=== PATIENT | male | born 1940 | race Caucasian/White ===

== ENCOUNTER 2017-01-07 07:43 | Inpatient (IN) | payer MEDICARE ==
--- NOTE | 2016-12-31 11:26 | HP ---
AMENDED REPORT NOW INCLUDES COSIGNER DESIGNATION - ESIGNED BEFORE ADJUSTMENT HISTORY AND PHYSICAL: DATE OF SURGERY: 01/07/17. DATE OF OFFICE VISIT: 12/28/16. SURGEON: Cristal Rios MD * (DICTATED BY LUIGI STRAUSS) PROCEDURE: Right total knee arthroplasty. CHIEF COMPLAINT: Right knee pain. HISTORY OF PRESENT ILLNESS: Mr. Castorena is a 76-year-old gentleman with complaints of right knee pain secondary to osteoarthritis. He has failed conservative management and has elected to proceed with a right total knee arthroplasty. PAST MEDICAL HISTORY: Hypertension, GERD, sleep apnea. PAST SURGICAL HISTORY: Prostate surgery, unknown tonsillectomy. CURRENT MEDICATIONS: 1. Famotidine 20 mg daily. 2. Triamterene/hydrochlorothiazide 37.5/25 mg daily. 3. Amlodipine 2.5 mg daily. ALLERGIES: None. FAMILY HISTORY: Breast cancer. SOCIAL HISTORY: A 76-year-old gentleman who lives with his spouse. Does not smoke or use drugs. He uses occasional alcohol. REVIEW OF SYSTEMS: A complete 14-point review of systems was reviewed with the patient, is positive for GERD and shortness of breath with overexertion. He denies history of DVT, PE or anesthesia problems. PHYSICAL EXAMINATION GENERAL: He is a well developed, well nourished, in no acute distress. VITAL SIGNS: He stands 6 feet tall, he is 240 pounds, blood pressure is 143/79 , heart rate 69. HEENT: Normocephalic, atraumatic. NECK: Supple. No palpable lymph nodes. PULMONARY: Lungs are clear to auscultation bilaterally. CARDIO: Regular rate and rhythm. ABDOMEN: Soft, nontender, and nondistended. MUSCULOSKELETAL: Right lower extremity, the skin is intact. There are no open wound or abrasions. There is a moderate effusion and tenderness over the mediolateral joint line, 15 to 125 degrees flexion with patellofemoral crepitus. 2+ dorsalis pedis pulses. Intact sensation in his lower extremity. Muscle group strengths are intact at 5/5. NEUROLOGIC: Alert and oriented x3. Cranial nerves II through XII are intact. ASSESSMENT AND PLAN: Mr. Castorena is a 76-year-old gentleman with complaints of right knee pain secondary to end-stage osteoarthritis. He has failed conservative management and has elected to proceed with a right total knee arthroplasty, which is scheduled for 01/07/[address] Rios discussed the risks and benefits of the surgery at today's visit and all of his questions were answered. Percocet, Colace, and Coumadin were sent to his pharmacy for postoperative pain control and DVT prophylaxis. He will see Dr. Rios back in 2 weeks after the surgery. LUIGI STRAUSS [id number]/[facility] #: [id number] MTDD
[~2017-01-07 07:43] MED LIST: Buffered Lidocaine 0.9% SYRIN* 5 ML/SYR SYRINGE INTRADERM ONE; Dexamethasone IV* 4 MG/ML 1 ML (4 MG) IV SLOW PU ONE; Famotidine IV* 10 MG/ML 2 ML (20 mg) IV ONE
[2017-01-07] MEDS ORDERED: Clindamycin 900 MG IVPREMIX(* 900 MG/50 ML SDV IV ONE (08:01)
[2017-01-07] MEDS ORDERED: Dexamethasone IV* 4 MG/ML 1 ML (4 MG) ONE (08:01)
[2017-01-07] MEDS ORDERED: Famotidine IV* 10 MG/ML 2 ML (20 mg) ONE (08:01)
[2017-01-07] MEDS ORDERED: Buffered Lidocaine 0.9% SYRIN* 5 ML/SYR SYRINGE ONE (08:02)
[2017-01-07] MEDS ORDERED: Scopolamine 1.5 mg* PATCH ONE (09:23)
[2017-01-07] MEDS ORDERED: Ketorolac INJ* 30 MG/ML 1 ML VIAL IV PRN (09:34)
[2017-01-07] MEDS ORDERED: DiMENhydriNATE IV* 50 MG/ML VIAL IV PUSH PRN ×2 (09:34→09:35)
[2017-01-07] MEDS ORDERED: Naloxone* 2 MG in NS 0.9% 250 ML* 250 ML IV PRN (09:35)
[2017-01-07] MEDS ORDERED: diPHENhydraMINE IV* 50 MG/ML 1 ml VIAL (BENADRYL) IV PRN (09:35)
[2017-01-07] MEDS ORDERED: Ketorolac INJ* 15 MG/ML 1 ML VIAL IV PRN (09:35)
[2017-01-07] MEDS ORDERED: EPHEDrine (Pressors)* 50 MG/ML VIAL IV PUSH PRN (09:35)
[2017-01-07] MEDS ORDERED: Ondansetron INJ* 2 MG/ML VIAL IV PRN (09:35)
[2017-01-07] MEDS ORDERED: Midazolam* 1 MG/ML 2 ML VIAL (2 MG) ONE (09:52)
[2017-01-07] MEDS ORDERED: Scopolamine 1.5 mg* PATCH TRANSDERM SCH (10:00)
[2017-01-07] MEDS ORDERED: Ropivacaine* 300 MG in NS 0.9% 250 ML* 240 ML EPIDURAL SCH (10:00)
[2017-01-07] MEDS ORDERED: Morphine PF AMP (0.5MG/ML)* 5 MG/10 ML AMP ONE (10:04)
[2017-01-07] MEDS ORDERED: Ondansetron INJ* 2 MG/ML VIAL ONE (10:31)
[2017-01-07] MEDS ORDERED: Propofol* 10 MG/ML 20 ML BTL IV PUSH ONE (10:31)
[2017-01-07] MEDS ORDERED: Naloxone* 0.4 MG/ML 1 ML VIAL IV PRN (11:04)
[2017-01-07] MEDS ORDERED: Magnesium Hydroxide LIQ* 30 ML UDC PO PRN (11:32)
[2017-01-07] MEDS ORDERED: Bisacodyl SUPP* 10 MG SUPP PR PRN (11:32)
[2017-01-07] MEDS ORDERED: Acetaminophen TAB* 325 MG PO PRN (11:32)
[2017-01-07] MEDS ORDERED: Polyethylene Glycol 3350* 17 GM PACKET PO PRN (11:32)
--- NOTE | 2017-01-07 13:45 | RAD ---
HISTORY: Status post right knee arthroplasty COMPARISONS: August 21, 2016 VIEWS: 2, Frontal and lateral views of the right knee FINDINGS: BONE DENSITY: Normal. BONES: The patient is status post right knee arthroplasty. There is no hardware failure or osteolysis. JOINTS: The patient is status post right knee arthroplasty ALIGNMENT: There is no dislocation. SOFT TISSUES: There is postsurgical change to the soft tissue OTHER FINDINGS: None. IMPRESSION: STATUS POST RIGHT KNEE ARTHROPLASTY
[2017-01-07] MEDS ORDERED: Warfarin TAB(*) 6 MG PO ONE (17:00)
[2017-01-07] MEDS: Clindamycin 600 MG IVPREMIX(* 600 MG/50 ML SDV IV SCH (20:35)
[2017-01-07] MEDS: Docusate CAP* 100 MG PO SCH (20:36)
[2017-01-07] MEDS ORDERED: Triamterene/HCTZ 37.5-25 MG* CAP PO SCH (21:00)
--- NOTE | 2017-01-07 21:21 | CONS ---
CC: Dr. Best; Dr. Rios * CONSULTATION REPORT: DATE OF CONSULT: 01/07/17 PRIMARY CARE PROVIDER: Dr. Best. REQUESTING PHYSICIAN IN CONSULT: Dr. Rios. REASON FOR MEDICAL CONSULTATION: Evaluation and medical management of comorbid medical conditions. HISTORY OF PRESENT ILLNESS: I refer you to Dr. Rios's H and P for further details. In short, Mr. Castorena is a 76-year-old male patient. He carries a history of hypertension, ALEXIA, GERD, hyperlipidemia, BPH, and arthritis who for some time has been dealing with right knee pain. He failed conservative management and ultimately was evaluated by Dr. Rios. It was felt that he would benefit from elective total knee, which he underwent today. Because of his complexity medically, we were asked to evaluate in consult. He was evaluated in the PACU. At this point, he states he denies having any chest pain. Denies having any shortness of breath. He denies having any abdominal pain. He states he does not feel lightheaded or dizzy. He states he has no sensation in his lower extremities, although he did receive spinal anesthetic. He states he is feeling well. He states his pain is well controlled. PAST MEDICAL HISTORY: 1. Hypertension. 2. GERD. 3. ALEXIA. 4. Hyperlipidemia. 5. BPH. 6. Arthritis. PAST SURGICAL HISTORY: 1. He has had a TURP. 2. Tonsillectomy. 3. Now, he has had right total knee replacement done today. MEDICATIONS: Home medications according to his preop list: 1. Tylenol 650 mg p.o. every 6 hours as needed. 2. Dyazide half a capsule p.o. at bedtime. 3. Metamucil p.o. daily. 4. Pepcid 20 mg daily. 5. Norvasc 2.5 mg p.o. daily. ALLERGIES TO MEDICATIONS: Include PENICILLIN. FAMILY HISTORY: Mother had a history of breast cancer with metastatic disease. Father had a history of pancreatitis. SOCIAL HISTORY: He does not smoke, does not drink. Surrogate decision maker is his . REVIEW OF SYSTEMS: There is no documented fever. Denied having any significant weight change. No double vision. No ear discharge. There is no rhinorrhea. No sore throat. No thyroid enlargement. Denies having any chest pain. There is no orthopnea. No nocturnal dyspnea. No chest pain. No nausea. No vomiting. No dysuria. No frequency. No seizure. No loss of consciousness. No pruritus. No skin ulcerations. Review of 14 systems was completed; all others negative. PHYSICAL EXAMINATION: Vital Signs: Blood pressure 137/79, his last blood pressure down here is 114/70 with a pulse of 64, respirations 16, O2 sat 96%, temperature 97.3. General: At this time, Mr. Castorena is a 76-year-old male patient. He appears to be well nourished, well developed. He is sitting in the PACU bed. He does not appear to be in any acute distress. HEENT: Head: Atraumatic, normocephalic. Eyes: EOMs intact. Sclerae anicteric, not pale. Pupils reactive to light. Neck: Supple. Throat: Oral mucosa appears to be moist. No oropharyngeal erythema. Heart: Sounds S1, S2. Regular rate and rhythm. No murmurs, rubs, or gallops were appreciated. Lungs were clear to auscultation bilaterally. No wheezes, rales, or rhonchi. Abdomen: Soft, flat , nontender. Bowel sounds are hypoactive. Extremities: Distal CSM checks are intact bilaterally. He has no sensation yet and no movement just yet due to the spinal anesthetic, but again pulses and cap refills were excellent. He is moving his upper extremities with 5/5 strength. Neurologically, he is awake, alert, oriented x3. Centrifuge Separator Tender were equal. Tongue midline. No gross focal deficits. Speech is clear. Skin: Intact with the exception he has an incision to the right knee, which is covered with an Nazario dressing, clean, dry, and intact. Hemovac was intact. LABORATORY DATA/DIAGNOSTIC STUDIES: His labs preoperatively, WBC 5.6, RBC of 5.25, hemoglobin 16.4, hematocrit of 48, platelet count 198,000. His INR was 1.07. Urine preop was negative. He did have a EKG preop, which shows a normal sinus rhythm at rate of 70, no ST elevations or T wave inversions. He had a preop chest x-ray as well, which revealed no active cardiopulmonary disease. There was a preop basic metabolic panel with glucose 121, BUN 24, creatinine 1.1. Sodium 139, potassium 3.7, chloride 105, bicarb 28, calcium 9.8. Old medical records were reviewed. ASSESSMENT AND PLAN: Mr. Castorena is a 76-year-old male patient coming in to the orthopedic services today for elective total knee replacement. We were asked to evaluate in consult for medical management. Recommendations at this point are: 1. Status post right total knee. I will defer further management of this to Dr. Rios and her team. 2. Hypertension. I am going to hold his medications at this point as he does have an epidural in place. We will restart this when the epidural is removed and follow closely. 3. Obstructive sleep apnea. We will put him on continuous pulse oximetry for 24 hours given the spinal anesthetic, to watch him closely and we will continue with CPAP. 4. Hyperlipidemia. Continue with lifestyle management. 5. Benign prostatic hypertrophy. Follow with his primary. Not an active issue currently. 6. Gastroesophageal reflux disease. Continue his famotidine. 7. Osteoarthritis. Pain meds are made available and follow with his primary. 8. DVT prophylaxis. I will defer the management to the primary team. 9. Fluids, electrolytes, and nutrition. I would recommend a regular diet. 10. Code status. Full code. TIME SPENT: On the consult was 60 minutes, greater than half the time was spent [id number] with the patient obtaining my history and physical, other half of the time was spent going over the plan of care with the patient and implementing plan of care. I did discuss the plan of care with my attending, Dr. Marley; she is in agreement. LORI DICKENS NP [id number]/[facility] #: [id number] GEMMA
[2017-01-08] MEDS: Clindamycin 600 MG IVPREMIX(* 600 MG/50 ML SDV IV SCH ×2 (05:00→13:15)
[2017-01-08] MEDS: oxyCODONE/Acetamin 5/325 MG* TAB PO PRN ×3 (05:11→17:13)
[2017-01-08 05:39] LABS: Hematocrit 38 % (42-52)
[2017-01-08 05:51] LABS: BUN/Creatinine Ratio 26.3 (8-20); EGFR African American 98.9 (>60); EGFR Non-African American 76.9 (>60); Potassium 3.8 mmol/L (3.5-5.0)
[2017-01-08] MEDS ORDERED: Ondansetron INJ* 2 MG/ML VIAL IV PRN (06:00)
[2017-01-08] MEDS ORDERED: diPHENhydraMINE IV* 50 MG/ML 1 ml VIAL (BENADRYL) IV PRN (06:00)
[2017-01-08] MEDS ORDERED: oxyCODONE/Acetamin 5/325 MG* TAB PO PRN (06:00)
[2017-01-08] MEDS ORDERED: Ondansetron TAB* 4 MG PO PRN (06:00)
[2017-01-08] MEDS ORDERED: Morphine INJ* 2 MG/ML 1 ML SYRINGE (TWO MG - NEW SYRINGE VERSION) IV PRN (06:00)
[2017-01-08] MEDS: oxyCODONE TAB* 5 MG TAB PO PRN ×2 (08:30→19:53)
[2017-01-08] MEDS: Docusate CAP* 100 MG PO SCH ×2 (08:30→19:54)
[2017-01-08] MEDS: Famotidine TAB* 20 MG PO SCH (08:30)
[2017-01-08] MEDS ORDERED: NON FORMULARY MED* (Amlodipine Besylate [Norvasc 2.5 Mg Tab] 2.5 MG) PO SCH (09:00)
--- NOTE | 2017-01-08 09:54 | PN ---
Subjective Date of Service: 01/08/17 Interval History: Patient seen this morning. Reports some soreness in the R knee, just got pain medication. Still having numbness in the RLE, epidural catheter removed this morning. Denies any chest pain or SOB. López removed, no UOP yet, no BM yet. Family History: Unchanged from Admission Social History: Unchanged from Admission Past Medical History: Unchanged from Admission Objective Active Medications: Acetaminophen (Tylenol Tab*) 650 mg PO Q4H PRN Bisacodyl (Dulcolax Supp*) 10 mg [place] DAILY PRN Diphenhydramine HCl (Benadryl Iv*) 12.5 mg IV Q6H PRN Docusate Sodium (Colace Cap*) 100 mg PO BID JORGE Enoxaparin Sodium (Lovenox(*)) 30 mg SUBCUT Q24H JORGE Famotidine (Pepcid Tab*) 20 mg PO DAILY JORGE Ropivacaine 300 mg/ Sodium (Chloride) 300 mls @ 0 mls/hr EPIDURAL Q24H JORGE; Per Protocol Clindamycin HCl/Dextrose (Cleocin 600 Mg Ivpremix(*) Sdv) 600 mg in 50 mls @ 100 mls/hr IV Q8H JORGE Lactated Ringer's (Lactated Ringers 1000 Ml Bag*) 1,000 mls @ 100 mls/hr IV PER RATE JORGE Lactulose (Lactulose*) 30 ml PO Q6H PRN Magnesium Hydroxide (Milk Of Magnesia Liq*) 30 ml PO Q6H PRN Morphine Sulfate (Morphine Inj (Syringe)*) 2 mg IV Q2H PRN Ondansetron HCl (Zofran Inj*) 4 mg IV Q6H PRN Ondansetron HCl (Zofran Tab*) 4 mg PO Q6H PRN Oxycodone HCl (Roxycodone Tab*) 10 mg PO Q4H PRN Oxycodone/Acetaminophen (Percocet 5/325 Tab*) 1 tab PO Q4H PRN Oxycodone/Acetaminophen (Percocet 5/325 Tab*) 2 tab PO Q4H PRN Pharmacy Profile Note (Coumadin Daily Reminder*) [address] [facility] Pharmacy Profile Note (Scopolamine Patch Remove*) 1 note PATCH OFF Q72H JORGE Polyethylene Glycol/Electrolytes (Miralax*) 17 gm PO DAILY PRN Scopolamine (Transderm-Scop 1.5 Mg Patch*) 1 patch TRANSDERM Q72H JORGE Vital Signs 01/07/17 01/07/17 01/07/17 12:50 12:55 13:00 Temperature 96.4 F Pulse Rate 64 64 66 Respiratory 16 16 16 Rate Blood Pressure 122/72 114/73 117/69 (mmHg) O2 Sat by Pulse 98 98 99 Oximetry 01/07/17 01/07/17 01/07/17 14:45 15:00 15:13 Temperature Pulse Rate 60 62 61 Respiratory 16 14 16 Rate Blood Pressure 103/65 105/68 105/68 (mmHg) O2 Sat by Pulse 95 95 94 Oximetry 01/08/17 01/08/17 01/08/17 05:11 05:59 07:37 Temperature 98.1 F Pulse Rate 54 Respiratory 16 16 17 Rate Blood Pressure 103/57 (mmHg) O2 Sat by Pulse 93 Oximetry Oxygen Devices in Use Now: None Appearance: Elderly, M, laying in chair in NAD Eyes: No Scleral Icterus Ears/Nose/Mouth/Throat: Mucous Membranes Moist Neck: NL Appearance and Movements; NL JVP Respiratory: Symmetrical Chest Expansion and Respiratory Effort, Clear to Auscultation Cardiovascular: NL Sounds; No Murmurs; No JVD, RRR Abdominal: NL Sounds; No Tenderness; No Distention Lymphatic: No Cervical Adenopathy Extremities: No Edema, - - JARED wrap in place over R knee, R cryounit in place Neurological: - - Reports diminished sensation in RLE Result Diagrams: 01/08/17 04:58 01/08/17 04:57 Assess/Plan/Problems-Billing Assessment: R TKA in a 76 yo M with hx of HTN, diet-controlled HLD, BPH, ALEXIA, GERD - Patient Problems (1) Status post total right knee replacement Current Visit: Yes Comment: Management as per Ortho. Continue to have RLE numbness, apparently had prolonged PACU course as it took a long time for him to recover sensory/motor function from epidural. Epidural cath removed this AM, anesthesia continues to follow, will continue to monitor. On Coumadin/Lovenox (2) HTN (hypertension) Current Visit: Yes Comment: BPs remain soft. Continue to hold home Amlodipine and Dyazide. (3) ALEXIA (obstructive sleep apnea) Current Visit: Yes Comment: CPAP qhs (4) GERD (gastroesophageal reflux disease) Current Visit: Yes Comment: Continue H2 ronnell (5) DVT prophylaxis Current Visit: Yes Comment: Lovenox/Coumadin
--- NOTE | 2017-01-08 11:35 | PN ---
Progress Note - Progress Note Date of Service: 01/08/17 SOAP: Subjective: Pt. reports pain is controlled. He has some numbness on dorsal toes and weakness with DF but feels this is improving. Objective: RLE - dresssing changed, drain removed with tip intact. Inc c/d/i with min effusion at knee. distally calf is soft. Sens to LT but diminished compared to opposite side in region of superficial peroneal nerve dorsal foot. He does clearly demonstrate active EHL and DF against gravity, but this is weak compared to opposite side 4+/5. 2+ dp pulse. Vital Signs: Temp Pulse Resp BP Pulse Ox 98.1 F 54 16 103/57 93 01/08/17 07:37 01/08/17 07:37 01/08/17 10:45 01/08/17 07:37 01/08/17 07:48 Laboratory Results - last 24 hr 01/08/17 01/08/17 01/08/17 04:57 04:57 04:58 Hgb 13.0 L Hct 38 L INR (Anticoag Therapy) 1.16 H Sodium 136 Potassium 3.8 Chloride 101 Carbon Dioxide 28 Anion Gap 7 BUN 25 H Creatinine 0.95 Est GFR ( Amer) 98.9 Est GFR (Non-Af Amer) 76.9 BUN/Creatinine Ratio 26.3 H Glucose 185 H Calcium 9.0 Assessment: 76 yo M pod 1 s/p RTKA Plan: wbat rle continue to bend knee, new loose dressing placed. He will focus on DF and EHL exercises. Anticipate full recovery PT/OT 8 mg coumadin tonight plan d/c to home possible 01/09
--- NOTE | 2017-01-08 11:37 | PN ---
Progress Note - Progress Note Date of Service: 01/08/17 SOAP: Subjective: 76 y/o male s/p R TKA on 01/[address] Rios. Patient pain controlled with PO pain meds, c/o numbness of great, 2nd toes with decreased movement of RIght foot , mild improvement over this AM. VSS afebrile overnight, mild hypotension. Objective: General- Well appearing, NAD AO, sitting comfortably in chair MSK- Dressing intact, no drainage noted, - homans b/l, Right great toe, 2nd toes with no sensation to light touch or pain stimuli, decreased ROM with extension, able to flex without difficulty A&P, light touch sensation begins to decrease at medial ankle and worsens to toes, full sensation in 3-5th toes with full ROM, full PF of r ankle, decreased DF with 1/5 strength. knee extension 3/5 strength in compared to L, flex 5/5 = b/l. Vital Signs Temp 98.1 F 01/08/17 07:37 Pulse 54 01/08/17 07:37 Resp 16 01/08/17 10:45 BP 103/57 01/08/17 07:37 Pulse Ox 93 01/08/17 07:48 Intake & Output 01/07/17 01/08/17 01/08/17 18:59 06:59 18:59 Intake Total 1750 1610 320 Output Total 1100 750 Balance 650 860 320 Weight 108.409 kg Intake: IV Fluids 1250 890 CLINDAMYCIN 900MG 50 LR 1200 890 IVPB 50 ABX - CLINDAMYCIN 50 Oral 500 670 320 Output: López 950 750 Estimated Blood Loss 150 Other: # Bowel Movements 0 Assessment: Stable 76 y/o male s/p R TKA on 01/[address] Rios. Plan: - Mild hypotension, continue to monitor, being followed by hospitalists - LE numbness/ weakness- Dr Rios made aware, will continue to monitor throughout the AM for improvement - DVT prophylaxis- continue lovenox, INR 1.16, 8mg coumadin tonight. - Continue PT - COntinue current pain management Active Medications Generic Name Dose Route Start Last Admin Trade Name Freq PRN Reason Stop Dose Admin Acetaminophen 650 mg 01/07/17 11:32 Tylenol Tab* PO Q4H PRN PAIN OR TEMPERATURE Bisacodyl 10 mg 01/07/17 11:32 Dulcolax Supp* [place] DAILY PRN constipation Diphenhydramine HCl 12.5 mg 01/08/17 06:00 Benadryl Iv* IV Q6H PRN PRURITIS Docusate Sodium 100 mg 01/07/17 21:00 01/08/17 08:30 Colace Cap* PO 100 mg BID JORGE Administration Enoxaparin Sodium 30 mg 01/08/17 12:00 Lovenox(*) SUBCUT Q24H JORGE Famotidine 20 mg 01/08/17 09:00 01/08/17 08:30 Pepcid Tab* PO 20 mg DAILY JORGE Administration Clindamycin HCl/Dextrose 600 mg in 50 mls @ 100 mls/hr 01/07/17 21:00 05:00 Cleocin 600 Mg Ivpremix(*) Sdv IV 01/08/17 13:29 100 mls/hr Q8H JORGE Administration Lactated Ringer's 1,000 mls @ 100 mls/hr 01/07/17 12:00 01/08/17 05:41 Lactated Ringers 1000 Ml Bag* IV 100 mls/hr PER RATE JORGE Administration Lactulose 30 ml 01/07/17 11:32 Lactulose* PO Q6H PRN constipation Magnesium Hydroxide 30 ml 01/07/17 11:32 Milk Of Magnesia Liq* PO Q6H PRN constipation Morphine Sulfate 2 mg 01/08/17 06:00 Morphine Inj (Syringe)* IV Q2H PRN PAIN Ondansetron HCl 4 mg 01/08/17 06:00 Zofran Inj* IV Q6H PRN nausea Ondansetron HCl 4 mg 01/08/17 06:00 Zofran Tab* PO Q6H PRN NAUSEA Oxycodone HCl 10 mg 01/08/17 06:00 01/08/17 08:30 Roxycodone Tab* PO 10 mg Q4H PRN Administration SEVERE PAIN Oxycodone/Acetaminophen 1 tab 01/08/17 06:00 Percocet 5/325 Tab* PO Q4H PRN PAIN Oxycodone/Acetaminophen 2 tab 01/08/17 05:00 01/08/17 05:11 Percocet 5/325 Tab* PO 2 tab Q4H PRN Administration PAIN Pharmacy Profile Note 1 note 01/08/17 17:00 Coumadin Daily Reminder* FOLLOW UP [facility] Pharmacy Profile Note 1 note 01/10/17 09:00 Scopolamine Patch Remove* PATCH OFF Q72H [facility] Polyethylene Glycol/Electrolytes 17 gm 01/07/17 11:32 Miralax* PO DAILY PRN Constipation Scopolamine 1 patch 01/07/17 10:00 01/07/17 09:24 Transderm-Scop 1.5 Mg Patch* TRANSDERM 1 patch Q72H [facility] Administration Warfarin Sodium 8 mg 01/08/17 17:00 Coumadin Tab(*) PO 01/08/17 17:01 ONCE@1700 ONE Protocol
[2017-01-08] MEDS: Enoxaparin(*) 30 MG/0.3 ML SYR SUBCUT SCH (13:18)
--- NOTE | 2017-01-08 14:14 | OP ---
OPERATIVE REPORT: DATE OF OPERATION: 01/07/17. DATE OF : 38. SURGEON: Cristal Rios MD. PIPELINE OPERATOR: LUIGI De Leon. Matt Roman did help throughout the procedure with preparation of the leg, wound retraction, manip ulation of the knee and wound closure. ANESTHESIOLOGIST: Dr. Collazo. ANESTHESIA: Spinal. PRE-OP DIAGNOSIS: Severe endstage degenerative osteoarthritis of the right knee joint. POST-OP DIAGNOSIS: Severe endstage degenerative osteoarthritis of the right knee joint. OPERATIVE PROCEDURE: Right total knee arthroplasty. TOURNIQUET TIME: 48 minutes. COMPLICATIONS: None. ESTIMATED BLOOD LOSS: 300 mL. SPECIMENS: Bone and cartilage from the right knee joint sent to Pathology. HARDWARE USED: This is a cemented [employer] total knee hardware. For the cement, 2 packages of Simplex bone cement. For the femur a size 7 right posterior stabilized femoral component. For th e tibia, a size 6 right tibial baseplate. For the insert, a 9-mm posterior stabilized articular inse rt, size 5/6. For the patella, size 35 mm 3-peg all poly patella. BRIEF HISTORY/INDICATIONS: Mr. Castorena is a 76-year-old gentleman with years of increasingly severe lef t knee pain. He failed conservative treatment with antiinflammatories, pain medications, physical th erapy, intraarticular injection, and ambulatory assistive devices. His radiographs showed bone-on-angelica ne arthritis. Due to continued pain and decreased quality of life, he elected to proceed with right k nee arthroplasty. Informed consent was obtained from the patient. He understood the risk of the pro cedure included, but were not limited to bleeding, infection, damage to nearby structures, continued pain, need for further surgery, intraoperative fracture, nerve palsy, hardware failure or loosening, knee stiffness, loss of motion, stroke, heart attack, blood clot, and . He wished to proceed. INTRAOPERATIVE FINDINGS: Intraoperatively, the patient was noted to have severe arthritis with compl ete loss of cartilage in the medial and patellofemoral compartments. There was significant osteophyt e formation. DESCRIPTION OF PROCEDURE: Mr. Castorena was identified in the preanesthesia unit. His right lower extrem ity was marked as the correct operative site. Informed consent was signed and placed in the chart. The patient was taken to the operating room and placed under spinal anesthesia. A López catheter was placed. A tourniquet was placed on the right thigh. The right lower extremity was prepped and drap ed in the usual sterile fashion. Preop time-out was made to correctly identify the patient side and site. Appropriate perioperative antibiotics were given within 1 hour of incision. Tourniquet was inflated until the tourniquet time for this procedure was 48 minutes. A 14-cm midline incision was made with a 10 blade, carried down to the extensor mechanism. A new 10-blade was used to make a standard medial parapatellar arthrotomy. The patella was subluxed laterally. Electrocaute ry was used to subperiosteally elevate soft tissue off the superomedial tibia to the mid sagittal maragret ne. The knee was flexed up. The anterior horn of the lateral meniscus and the ACL were sharply rele ased. A drill was used to enter the distal femur. Intramedullary distal femoral cutting guide was pi nned on the distal femur. Then, 9 mm of distal femoral bone was carefully removed. Next, the school resource officer al rotation guide was pinned on the distal femur and the distal femur was sized to a size 7. Size 7 m ulti-cutting jig was then pinned on the distal femur. Oscillating saw was used to make the appropria te 4 chamfer cuts. The PCL was completely released. The tibia was subluxed anteriorly. Extramedullary tibial cutting gu taras was pinned on the proximal tibia. Oscillating saw was used to make the proximal tibial cut perpe ndicular to the mechanical axis of the tibia. The bone was carefully removed. The knee was brought out into full extension. Spacer block had a good fit. Medial and lateral ligamentous balancing was satisfactory. Flexion and extension gap balancing was satisfactory. The knee was flexed up. Lamina advertising internship was placed both medially and laterally. Any remaining meniscus was carefully removed using electrocautery. Posterior osteophytes were removed with a curved osteotome. A size 7 right femoral trial was impacted on to the distal femur. This had excellent fit. The box for the posterior stabi lized implant was prepared using a reamer and box-cut osteotome. A size 6 tibial tray trial was placed with a 9 mm insert trial. The knee was taken through range of motion and noted to have full extension to 130 degrees of flexion with satisfactory patellofemoral tr acking. The patella was everted. Then, 9-mm of patellar bone and cartilage were carefully removed u sing the oscillating saw. The patella was sized to a size 35. The 3 peg holes were drilled through the size 35 guide. A trial 35 patella was placed and the knee was taken through range of motion. Pa tellofemoral tracking was satisfactory. All trials were carefully removed. The tibia was subluxed anteriorly. It was noted that there was a cyst along the posterior media tibia and any cystic material was carefully removed. These were less than 1 cm in diameter; therefore, it was decided that cement will be used to fill these. Proximal t ibia was sized to a size 6. Proximal tibia was prepared using a size 6 keel punch. All bony cut surfaces were copiously irri gated with sterile saline and dried. The final implants were cemented into place starting with the t ibia, followed by the femur, and lastly the patella. A 9-mm insert trial was placed while the knee w as brought into full extension. The tourniquet was turned down at 48 minutes. The knee was copiousl y irrigated with sterile saline. Electrocautery was used to obtain meticulous hemostasis. Once the cement had fully cured, the insert trial was removed. Any excess cement was carefully removed from a round the capsule and hardware. Final insert chosen was a 9 mm posterior stabilized articular insert size 5/6. This was locked into position on the tibial tray without difficulty. Stability of the in sert was checked and rechecked and noted to be stable. Final range of motion with full extension, to 130 degrees of flexion. The knee was copiously irrigated with sterile saline. The extensor mechanism was closed over a mediu m Hemovac drain using interrupted #1 Vicryls. The rest of the incision was closed in a layered fashi on using 0 and 2-0 Vicryls. Skin was closed using running 3-0 nylon suture. Sterile Xeroform, 4x4s, and Webril were used to cover the incision. Nazario wrap and cold pack were placed over this. The patie nt's anesthesia was reversed without difficulty. He was taken to the PACU in stable condition. Inte nded weightbearing will be weightbearing as tolerated. Intended DVT prophylaxis will be Coumadin with a Lovenox bridge. [id number]/[facility] #: [id number]
[2017-01-08] MEDS ORDERED: Warfarin TAB(*) 4 MG PO ONE (17:00)
[2017-01-08] MEDS ORDERED: Tamsulosin CAP* 0.4 MG PO SCH (21:00)
[2017-01-09] MEDS: oxyCODONE TAB* 5 MG TAB PO PRN (04:38)
[2017-01-09 05:31] LABS: Hematocrit 34 % (42-52); Hemoglobin 11.6 g/dl (14.0-18.0)
[2017-01-09] MEDS: oxyCODONE/Acetamin 5/325 MG* TAB PO PRN ×2 (08:04→11:53)
[2017-01-09] MEDS: Docusate CAP* 100 MG PO SCH (08:04)
[2017-01-09] MEDS: Famotidine TAB* 20 MG PO SCH (08:04)
[2017-01-09] MEDS ORDERED: Tamsulosin CAP* 0.4 MG PO SCH (09:00)
--- NOTE | 2017-01-09 09:27 | PN ---
Progress Note - Progress Note Date of Service: 01/09/17 SOAP: Subjective: Pt. is alert, reports pain is increased today. RLE foot numbness improved today. Objective: RLE - dressing changed, inc c/d/i. distally +df/ehl 4/5. sens lt intact dorsal foot, decr compared to L foot. 2+ dp pulse. Vital Signs: Temp Pulse Resp BP Pulse Ox 98.6 F 67 18 108/41 92 01/09/17 07:24 01/09/17 07:24 01/09/17 08:04 01/09/17 07:24 01/09/17 07:24 Laboratory Results - last 24 hr 01/09/17 01/09/17 05:09 05:09 Hgb 11.6 L Hct 34 L INR (Anticoag Therapy) 1.20 H Assessment: 76 yo M pod 2 s/p RTKA Plan: pt/ot wbat rle lovenox dose today 8 mg coumadin 01/09 and 01/10 d/c to home today with snf.
[2017-01-09 11:45] VITALS: BP 114/55
[2017-01-09] MEDS: Enoxaparin(*) 30 MG/0.3 ML SYR SUBCUT SCH (11:55)
[2017-01-09] MEDS ORDERED: Warfarin TAB(*) 4 MG PO ONE (17:00)
[2017-01-10] MEDS ORDERED: Scopolamine PATCH Remove* 1 NOTE MISC PATCH OFF SCH (09:00)
--- NOTE | 2017-01-10 10:15 | DS ---
AMENDED REPORT NOW INCLUDES COSIGNER DESIGNATION - ESIGNED BEFORE ADJUSTMENT DISCHARGE SUMMARY: DATE OF ADMISSION: 01/07/17 DATE OF DISCHARGE: 01/09/17 PROVIDER: Cristal Rios MD * (DICTATED BY LUIGI MAYS) ADMITTING DIAGNOSIS: Right knee osteoarthritis, status post right total knee arthroplasty. SECONDARY DIAGNOSES: 1. Hypertension. 2. Gastroesophageal reflux disease. 3. Sleep apnea. CONSULTATIONS: Medicine, Occupational Therapy, Physical Therapy. HISTORY OF PRESENT ILLNESS: Mr. Castorena is a 76-year-old gentleman with complaints of right knee pain due to end-stage osteoarthritis. He failed conservative measures, therefore elected to proceed with a right total knee arthroplasty with Dr. Rios on 01/07/17. HOSPITAL COURSE: The patient was admitted to [facility] on 01/07/17. He underwent a right total knee arthroplasty. He recovered on the short-stay surgical unit. On postop day 1, the López was removed. He had difficulty urinating on his own , but was started on Flomax and was able to urinate on his own. He was advanced to a regular diet without difficulty and his pain was controlled with oral Percocet. He was restarted on home medications. Labs and vitals remained stable. He was able to weight bear as tolerated on the right lower extremity. He advanced appropriately with physical therapy and occupational therapy. DVT prophylaxis was managed with Lovenox and Coumadin until he reached a therapeutic INR. By postop day 2, he was medically and orthopedically stable for discharge to home with VNS services. PHYSICAL EXAMINATION: General: A 76-year-old well-developed, well-nourished male, in no acute distress. Alert and oriented x3. Sitting comfortably in chair. Right lower extremity: Dressing is clean, dry, and intact. The calf is soft and nontender. Positive plantar flexion and dorsiflexion of the ankle. +2 dorsalis pedis pulses. Sensation is intact to light touch distally. DISCHARGE CONDITION: Stable. DISCHARGE MEDICATIONS: Home medications continued on discharge to include: 1. Triamterene/HCL 37.5/25 mg 0.5 capsule by mouth at bedtime. 2. Amlodipine besylate 2.5 mg 1 by mouth daily. 3. Psyllium by mouth daily. 4. Famotidine 20 mg 1 by mouth daily. 5. Tylenol 325 mg 2 tablets every 6 hours as needed for pain. New medications on discharge to include: 1. Docusate sodium 100 mg 1 by mouth twice a day. 2. Percocet 5/325 one to two tabs every 4 to 6 hours as needed for pain. 3. Coumadin 2 mg 1 to 4 tabs daily as directed by doctor. DISCHARGE INSTRUCTIONS: The patient is weightbearing as tolerated on the right lower extremity. It is okay for him to shower. There is no soaking the wound in water. He should redress with gauze and Nazario. He should call the orthopedic office with increased drainage, redness, increased pain, or fever or go to the ER with chest pain or shortness of breath. Regular diet with increased fluid and fiber to prevent constipation. He should continue to use his stool softeners and call if he does not have a bowel movement within 48 hours. He should continue PT and OT. Visiting nurses to do wound checks and visiting nurses to do blood draws for INRs on Wednesday and . He will continue Coumadin for DVT prophylaxis. Coumadin dosing on 01/09/17 is 8 mg, Coumadin dosing on 01/10/17 is 8 mg. To redraw on 01/11/17. His INR on 01/09/17 was 1.2. He will continue Percocet for pain, he should not exceed 4000 mg of Tylenol a day. It was explained that needs to be careful with taking the Percocet with the Tylenol together and he will continue to use Colace for constipation. He will require antibiotics prior to any dental work in the future. He will follow up with Dr. Rios in 10 to 14 days. He should call the office with any questions or concerns. LUIGI MAYS [id number]/[facility] #: [id number] [facility]See
== END 2017-01-09 13:49 | disposition home health service (06) | DRG 470 ==
LOC: AA 07:43 → SSU 19:44
PROVIDERS: ADMIT Orthopaedic Surgery Adult Reconstructive Orthopaedic Surgery; ATTEND Hospitalist
PROC: 0SRC0J9 Replacement of Right Knee Joint with Synthetic Substitute, Cemented, Open Approach (ICD-10-PCS; principal; 2017-01-07)
DX: M17.11 Unilateral primary osteoarthritis, right knee (principal); I95.9 Hypotension, unspecified; I10 Essential (primary) hypertension; K21.9 Gastro-esophageal reflux disease without esophagitis; R39.198 Other difficulties with micturition; R20.0 Anesthesia of skin; R53.1 Weakness; E78.5 Hyperlipidemia, unspecified; G47.33 Obstructive sleep apnea (adult) (pediatric); N40.0 Benign prostatic hyperplasia without lower urinary tract symptoms; M25.761 Osteophyte, right knee; Z79.01 Long term (current) use of anticoagulants; Z80.3 Family history of malignant neoplasm of breast; Z72.89 Other problems related to lifestyle; Z88.0 Allergy status to penicillin; Z83.79 Family history of other diseases of the digestive system; Z87.891 Personal history of nicotine dependence; Z90.79 Acquired absence of other genital organ(s)
CPT/HCPCS: 36415; 80048; 85014; 85018; 85610; 94660; A9270-GY; J1100; J1650; J2250; J2405; J2704; J2795